=== PATIENT | male | born 1965 | race Caucasian/White ===

== ENCOUNTER 2017-05-04 14:50 | Emergency (ER) | payer OTHER ==
[~2017-05-04] VITALS: Ht 172.7 cm; Wt 106.1 kg
[2017-05-04 15:15] VITALS: BP 133/77
[2017-05-04] MEDS ORDERED: EYE DROPS ALLER15 ML OD (15:21)
[2017-05-04] MEDS ORDERED: CIPROFLOXACIN2.5 ML OD (15:21)
== END 2017-05-04 15:25 | disposition home or self-care (01) ==
LOC: FSED 14:50
DX: B30.9 Viral conjunctivitis, unspecified (principal)
CPT/HCPCS: 99281